=== PATIENT | female | born 1980 | race Two or more races ===

== ENCOUNTER 2020-09-02 09:24 | Emergency (ER) | payer OTHER ==
[~2020-09-02] VITALS: Ht 165.1 cm; Wt 55.3 kg
--- NOTE | 2020-09-02 09:24 | NUR ---
PT BIB SISTER C/O CHEST PRESSURE "HER DAD JUST IN ICU AND SUDDENLY CHEST PRESSURE STARTED 10 MINS AGO" PT IS AAOX4, NOT IN RESPIRATORY DISTRESS, HOOKED TO SUPERVISOR CONTACT LENS AND O2 AT 2 LPM VIA NC. PT KEPT RESTED AND COMFORTABLE. WILL CONTINUE TO MONITOR.
--- NOTE | 2020-09-02 09:30 | NUR ---
IV LINE ESTABLSIHED BLOOD DRAWN AND SENT TO LAB.
[2020-09-02] MEDS ORDERED: LORAZEPAM 0.5 MG TABLET ONE (09:38)
[2020-09-02 09:50] LABS: BASOPHILS # (AUTO) 0.1 /CMM (0.0-0.2); BASOPHILS % (AUTO) 1.1 % (0.0-2.0); EOSINOPHILS % (AUTO) 3.8 % (0.0-6.0); HEMATOCRIT 42 % (33-45); HEMOGLOBIN 14.2 g/dL (11.5-14.8); LYMPHOCYTES # (AUTO) 3.1 /CMM (0.8-4.8); LYMPHOCYTES % (AUTO) 40.4 % (20.0-44.0); MEAN CORPUSCULAR HGB CONC 34 g/dl (31.0-36.0); MEAN CORPUSCULAR VOLUME 91 fL (82-100); MONOCYTES # (AUTO) 0.7 /CMM (0.1-1.30); MONOCYTES % (AUTO) 9.4 % (2.0-12.0); NEUTROPHILS # (AUTO) 3.5 /CMM (1.8-8.9); NEUTROPHILS % (AUTO) 45.3 % (43.0-81.0); PLATELET COUNT (AUTO) 257 /CMM (150-450); WHITE BLOOD COUNT (AUTO) 7.8 K/uL (4.3-11.0)
[2020-09-02] MEDS ORDERED: IV NS 0.9% 500 ML BAG IV ONE (10:00)
[2020-09-02] MEDS ORDERED: LORAZEPAM 0.5 MG TABLET PO ONE (10:00)
[2020-09-02 10:02] LABS: CALCIUM, SERUM 9.4 mg/dL (8.5-10.1); CARBON DIOXIDE 25 mmol/L (21-32); CHLORIDE 101 mmol/L (98-107); CREATININE 0.7 mg/dL (0.6-1.3); GLUCOSE 99 mg/dL (74-106); POTASSIUM 3.8 mmol/L (3.5-5.1); SODIUM SERUM 137 mmol/L (136-145); UREA NITROGEN, BLOOD 13 mg/dL (7-18)
--- NOTE | 2020-09-02 10:24 | NUR ---
IV removed. Catheter intact and site benign. Pressure and 4x4 applied to site. No bleeding noted. Patient discharged to home in stable condition. Written and verbal after care instructions given. Patient verbalizes understanding of instruction.
[2020-09-02 10:28] VITALS: BP 130/84
== END 2020-09-02 10:29 | disposition home or self-care (01) ==
LOC: ER 09:26
DX: F43.22 Adjustment disorder with anxiety (principal); M79.7 Fibromyalgia; F32.9 Major depressive disorder, single episode, unspecified; Z98.890 Other specified postprocedural states
CPT/HCPCS: 36415; 80048-TC; 84484-TC; 85025-TC; J7040